=== PATIENT | male | born 1930 | race Caucasian/White ===

== ENCOUNTER 2018-11-28 05:36 | Day surgery (SDC) | payer MEDICARE, OTHER ==
[~2018-11-28] VITALS: Ht 175.3 cm; Wt 110.7 kg
[~2018-11-28 05:36] MED LIST: ASCO100033 PO; ASPI-1146 PO; ATEN25TA PO; AZELASTINE NASAL; ENAL10TA PO; EXEN2VIA SQ; FINA5TAB41 PO; MULT-1081 PO; PANT40TA25 PO; ROSU10TA22 PO; [UNRECOGNIZED DRUG - OTHER] NASAL
[2018-11-28] MEDS ORDERED: SODIUM CHLORIDE 0.9% 1000ML 1,000 ML IV ONE (05:48)
[2018-11-28 07:03] VITALS: BP 148/64
[2018-11-28] MEDS ORDERED: OMEG-148 PO (07:18)
[2018-11-28] MEDS ORDERED: SUPER B COMPLEX (07:18)
[2018-11-28] MEDS ORDERED: RANI-662 PO (07:18)
[2018-11-28] MEDS ORDERED: UBID100C10 PO (07:18)
[2018-11-28 09:18] VITALS: BP 132/58
[2018-11-28 09:23] VITALS: BP 136/58
[2018-11-28 09:28] VITALS: BP 140/60
[2018-11-28 09:33] VITALS: BP 141/60
[2018-11-28 09:38] VITALS: BP 142/60
--- NOTE | 2018-11-28 09:45 | NUR ---
dc pt dc home via w[place],no distress noted. denied any pain or discomforts. accompanied by daughter, dc instructions reinforced.
== END 2018-11-28 09:45 | disposition home or self-care (01) ==
LOC: DAH 05:36 → ENDO 05:36
PROVIDERS: ATTEND Internal Medicine
DX: R10.13 Epigastric pain (principal); K29.70 Gastritis, unspecified, without bleeding; B96.81 Helicobacter pylori [H. pylori] as the cause of diseases classified elsewhere; K44.9 Diaphragmatic hernia without obstruction or gangrene; I25.10 Atherosclerotic heart disease of native coronary artery without angina pectoris; I10 Essential (primary) hypertension; E66.9 Obesity, unspecified; Z99.89 Dependence on other enabling machines and devices; Z68.37 Body mass index [BMI] 37.0-37.9, adult; Z79.899 Other long term (current) drug therapy; E78.5 Hyperlipidemia, unspecified; N40.0 Benign prostatic hyperplasia without lower urinary tract symptoms; Z98.890 Other specified postprocedural states
CPT/HCPCS: 43239; 88305; A4606; J7030

== ENCOUNTER → 2019-01-13 | Outpatient (CLI) | payer MEDICARE, OTHER ==
[~2019-01-13] MED LIST changes: -EXEN2VIA SQ; +OMEG-148 PO; -PANT40TA25 PO; +RANI-662 PO; +SUPER B COMPLEX; +UBID100C10 PO
== END | disposition home or self-care (01) ==
LOC: RAH 12:53
PROVIDERS: ATTEND Internal Medicine Critical Care Medicine
DX: J61 Pneumoconiosis due to asbestos and other mineral fibers (principal); M51.34 Other intervertebral disc degeneration, thoracic region
CPT/HCPCS: 71250

== ENCOUNTER → 2019-08-04 | Outpatient (CLI) | payer MEDICARE, OTHER ==
[~2019-08-04] MED LIST changes: -ENAL10TA PO; +ENAL10TA18 PO
== END | disposition home or self-care (01) ==
LOC: RAH 11:08
PROVIDERS: ATTEND Urology
DX: N32.3 Diverticulum of bladder (principal); N28.1 Cyst of kidney, acquired
CPT/HCPCS: 76770

== ENCOUNTER → 2019-10-20 | Outpatient (CLI) | payer MEDICARE, OTHER ==
[~2019-10-20] MED LIST changes: +ENAL10TA PO; -ENAL10TA18 PO
== END | disposition home or self-care (01) ==
LOC: RAH 10:41
PROVIDERS: ATTEND Internal Medicine
DX: K80.20 Calculus of gallbladder without cholecystitis without obstruction (principal); R12 Heartburn
CPT/HCPCS: 78264; A9541

== ENCOUNTER 2019-11-18 06:33 | Day surgery (SDC) | payer MEDICARE, OTHER ==
[2019-11-10 13:37] LABS: BASOPHILS % (AUTO) 0.6 % (0.0-5.0); EOSINOPHILS % (AUTO) 2.2 % (0.0-8.0); HEMATOCRIT 39.6 % (42-54); LYMPHOCYTES % (AUTO) 22.7 % (21.0-51.0); MEAN CORPUSCULAR HEMOGLOBIN 30.1 pg (27.0-33.0); MEAN CORPUSCULAR HGB CONC 32.6 g/dL (32.0-36.0); MEAN CORPUSCULAR VOLUME 92.5 fL (79-99); MONOCYTES % (AUTO) 7.1 % (3.0-13.0); NEUTROPHILS % (AUTO) 67.1 % (40.0-77.0); PLATELET COUNT (AUTO) 247 K/uL (130-400); RED BLOOD CELL COUNT(AUTO) 4.28 MIL/uL (4.50-6.20); RED CELL DISTRIBUTION WIDTH 13.1 % (11.0-15.5); WHITE BLOOD COUNT (AUTO) 9.6 K/uL (4.8-10.8)
[2019-11-10 13:38] LABS: CREATININE 1.6 mg/dL (0.5-1.5); POTASSIUM 4.8 mmol/L (3.5-5.1)
[2019-11-10 13:42] LABS: INR 0.95 (0.85-1.15); PARTIAL THROMBOPLASTIN TIME 28.1 SEC (26.3-35.5); PROTHROMBIN TIME 10.3 SEC (9.6-11.6)
--- NOTE | 2019-11-17 10:00 | NUR ---
ABNORMAL LAB REPORTED TO DR PERSAUD--GLUCOSE 119,BUN 37,CREAT 1.6,HGB 12.9,HCT39.6. ORDERS RECIEVBED TO PERFORM EKG AND CMP ON ARRIVAL DAY OF PROCEDURE
[2019-11-17 10:27] VITALS: BP 147/69
[2019-11-18] VITALS (18 sets, daily range): BP systolic 119–195; BP diastolic 46–84
[~2019-11-18] VITALS: Ht 172.7 cm; Wt 112.4 kg
[~2019-11-18 06:33] MED LIST changes: +CEFAZOLIN SODIUM 1 GM VIAL IVP SCH; -RANI-662 PO; +SODIUM CHLORIDE 0.9% 500ML 500 ML IV SCH
--- NOTE | 2019-11-18 06:45 | NUR ---
preop pt arrived via w/c. pt in no distress and oriented to room and call light. pt has dry scaly areas to gen skin with scars. ekg and cmp done
[2019-11-18] MEDS ORDERED: LACTATED RINGERS 1000ML 1,000 ML IV ONE (07:29)
[2019-11-18] MEDS ORDERED: BUPIVACAINE/PF 0.5% 30ML VIAL ONE (07:32)
[2019-11-18 07:47] LABS: ALBUMIN 3.6 g/dL (3.5-5.0); BILIRUBIN,TOTAL 0.4 mg/dL (0.2-1.0); CREATININE 1.5 mg/dL (0.5-1.5); POTASSIUM 4.3 mmol/L (3.5-5.1); TOTAL PROTEIN, SERUM 7.3 g/dL (6.0-8.3)
--- NOTE | 2019-11-18 08:00 | NUR ---
report dr greer reviewed cmp and will proceed with surgery as planned
[2019-11-18] MEDS ORDERED: SUCCINYLCHOLINE 200MG/10ML SYR ONE (08:46)
[2019-11-18] MEDS ORDERED: DEXAMETHASONE SOD PHOSPHATE 10MG/ML 1ML VIAL ONE (08:46)
[2019-11-18] MEDS ORDERED: MIDAZOLAM HCL 1 MG/ML 2ML VIAL ONE (08:46)
[2019-11-18] MEDS ORDERED: LIDOCAINE PF 2% 5ML ABBOJECT ONE (08:46)
[2019-11-18] MEDS ORDERED: ROCURONIUM 10MG/1ML SYR 10 MG/ML ML ONE ×2 (08:46→09:29)
[2019-11-18] MEDS ORDERED: FENTANYL CITRATE PF 50 MCG/1 ML 2ML VIAL ONE (08:46)
[2019-11-18] MEDS ORDERED: PROPOFOL 10 MG/ML 20ML VIAL IV ONE (08:46)
[2019-11-18] MEDS ORDERED: ONDANSETRON HCL 4 MG/2 ML VIAL ONE (08:46)
[2019-11-18] MEDS ORDERED: EPHEDRINE SULFATE 50 MG/ML AMPULE ONE (09:09)
[2019-11-18] MEDS ORDERED: GLYCOPYRROLATE 1 MG/5 ML SYRINGE ONE (10:37)
[2019-11-18] MEDS ORDERED: NEOSTIGMINE 5MG/5ML SYR IV ONE (10:38)
[2019-11-18] MEDS ORDERED: MEPERIDINE-PF 25 MG/ML SYG ONE (11:15)
[2019-11-18] MEDS ORDERED: HYDRALAZINE HCL 20 MG/ML VIAL ONE (11:23)
--- NOTE | 2019-11-18 12:00 | NUR ---
dressing: abdominal incision x 4 with dermabond, dry and intact. abdominal binder in place.
--- NOTE | 2019-11-18 12:10 | NUR ---
fluid intake: drank 120cc apple juice without any complaints of nausea or vomiting.
--- NOTE | 2019-11-18 12:32 | NUR ---
took over care from yelitza ward rn at 1232. pt stable
== END 2019-11-18 13:25 | disposition home or self-care (01) ==
LOC: DAH 06:33
PROVIDERS: ATTEND Student in an Organized Health Care Education/Training Program
DX: K80.10 Calculus of gallbladder with chronic cholecystitis without obstruction (principal); Z20.828 Contact with and (suspected) exposure to other viral communicable diseases; Z79.01 Long term (current) use of anticoagulants
CPT/HCPCS: 47562; S2900; 36415; 80048; 80053; 85025; 85610; 85730; 93005; J0330; J0360; J0690; J1100; J2001; J2175; J2250; J2405; J2704; J2710; J3010; J3490; J7030; J7120; U0003